=== PATIENT | male | born 1955 | race Caucasian/White ===

== ENCOUNTER 2023-09-01 21:36 | Inpatient (IN) | payer MEDICARE, BC, SELFPAY ==
[2023-09-01 21:51] VITALS: BP 161/95; PULSE 106; RESP 22; TEMP 37.7; O2SAT 95; BMI 34.3
[2023-09-01 22:06] LABS: Lactate* 1.4 mmol/L (0.5-1.9)
[2023-09-01 22:08] LABS: Hemoglobin* 16.3 gm/dL (13.5-17.5); Immature Granulocytes Abs Auto 0.02 K/uL (0.00-0.30); Immature Granulocytes Pct Auto 0.2 %; Lymphocytes Percent Auto 1.5 % (20-44); Mean Corpuscular HGB Conc 35 gm/dL (32-36); Mean Corpuscular Hemoglobin 30 pg (26-34); Mean Corpuscular Volume 85 fL (80-100); Monocytes Percent Auto 4.8 % (0.0-11.0); Neutrophils Percent Auto 93.5 % (42.0-72.0); Platelet Count* 82 K/uL (140-440); RDW Coefficient of Variation % 12.3 % (11.5-15.5); Red Blood Count 5.53 m/uL (4.30-5.90)
[2023-09-01 22:16] LABS: Slide Review Reflex No
[2023-09-01 22:20] LABS: Albumin* 3.8 g/dL (3.3-5.0); Chloride* 98 mmol/L (96-114)
[2023-09-01 22:21] LABS: Sodium* 133 mmol/L (135-149)
[2023-09-01 22:23] LABS: Anion Gap 12 mEq/L (7-15); Carbon Dioxide* 23 mmol/L (20-32); Creatinine* 1.3 mg/dL (0.5-1.5); Est. Creatinine Clearance* 63.17; Estimated Glomerular Filt Rate 61 ml/min
[2023-09-01 22:24] VITALS: BP 138/83; PULSE 105; RESP 16; O2SAT 95
[2023-09-01 22:24] LABS: Alanine Aminotransferase* 24 U/L (4-50); Alkaline Phosphatase* 162 U/L (40-150); Aspartate Amino Transferase* 28 U/L (12-35); Bilirubin Direct* 2.3 mg/dL (0.0-0.5); Bilirubin Total* 4.8 mg/dL (0.1-1.5); Blood Urea Nitrogen* 17 mg/dL (7-30); Calcium* 8.5 mg/dL (8.4-10.6); Glucose* 231 mg/dL (60-115); Lipase* 82 U/L (23-300); Total Protein* 6.9 g/dL (6.0-8.3)
[2023-09-01 22:26] LABS: Potassium* 2.8 mmol/L (3.6-5.1)
--- NOTE | 2023-09-01 22:35 | ED.GENADULT ---
HPI - General Adult General Chief complaint: Nausea/Vomiting Stated complaint: Weakness Time Seen by Provider: 09/01/23 22:00 History of Present Illness HPI narrative: CC: Fevers, Weakness, Nausea/Vomiting pt. with 2-3 days of symptoms. unable to keep medications down. weakness . 68-year-old man presenting to the emergency department with concern of vomiting for the last 3 days or so. Actually seems to have begun with some pain meds he gestures across the mid and upper abdomen. Has now been dry heaving. Has not been unable to keep his medications down. Quite thirsty. There is a diagnosis of Parkinson's they were concerned particular about his Sinemet dosing. He is increasingly weak needed help getting up today. Pain is now improved. No diarrhea. No constipation. Passed gas 20 minutes ago he thinks. No particular exposures. Per family EMS measured a temperature of 101?. He arrives here 99.9 Does have a history of atrial fibrillation. Anticoagulated with Coumadin. Last recalled INR was 3.8 history of hypertension, diabetes, dyslipidemia, sleep apnea. Facial skin cancer treated with radiation History of appendectomy Medications include metformin Lisinopril Glipizide Metoprolol Warfarin Tamsulosin Rosuvastatin Amlodipine Sinemet Efudex Tylenol p.m. Related Data Home Medications Medication Instructions Recorded Confirmed amlodipine 10 mg tablet 10 mg PO DAILY 09/02/23 09/02/23 carbidopa 25 mg-levodopa 100 mg 1 tab PO TID 09/02/23 09/02/23 tablet glipizide 2.5 mg tablet, extended 5 mg PO DAILY 09/02/23 09/02/23 release 24 hr lisinopril 40 mg tablet 40 mg PO DAILY 09/02/23 09/02/23 metoprolol tartrate 100 mg tablet 100 mg PO BID 09/02/23 09/02/23 rosuvastatin 20 mg tablet 40 mg PO QPM 09/02/23 09/02/23 tamsulosin 0.4 mg capsule 0.4 mg PO DAILY 09/02/23 09/02/23 warfarin 5 mg tablet PO 09/02/23 Allergies Allergy/AdvReac Type Severity Reaction Status Date / Time No Known Drug Allergies Allergy Verified 09/01/23 21:54 Review of Systems Status of ROS: Reports: 6 or more systems reviewed and unremarkable except as noted in History and below [facility] Medical History (Updated 09/02/23 @ 03:15 by Efra Castro MD) Atrial fibrillation ?I48.91 - Unspecified atrial fibrillation (ICD-10) Diabetes ?E11.9 - Type 2 diabetes mellitus without complications (ICD-10) Parkinsons ?G20.A1 - Parkinson's disease without dyskinesia, without mention of fluctuations (ICD-10) Social History What is your current living situation?: I presently have a place to live Problems where you live: no known problems Problems where you live details: n/a In the past 12 months, utilities in danger of being shut off: no In past 12 months, lack of transportation kept you from medical appts, meetings, work, or getting things needed for daily living: no In the past 12 mos, have been you worried that your food would run out before you had money to buy more?: never true In the past 12 mos, the food you bought just didn't last and you didn't have money to buy more?: never true Highest level of school completed/degree received: high school graduate How often do you have a drink containing alcohol: 4 or more times a week Alcohol type: hard liquor Alcohol type details: Tequila [employer] Luca Pt states he maybe drinks 14-15 Cocktails per week states he has a couple drinks per week How often do you have six or more drinks on one occasion: Weekly AUDIT-C Alcohol total score: 7 Non-prescribed substance use: denies use How often does anyone, including family, friends and others, physically hurt you: never How often does anyone, including family, friends and others, insult or talk down to you: never How often does anyone, including family, friends and others, threaten you with harm: never How often does anyone, including family, friends and others, scream or curse at you: never service: No Exam Narrative: Exam Narrative: Pleasant. NAD. Seems tired. Oropharynx is little sticky. Cranial nerves 2 through 12 appear to be intact. Mild scleral icterus. Lungs are clear. Heart is in a rapid rate. Appears to be in a regular rhythm with some ectopy. Abdomen is full soft and nontender. Did not hear bowel sounds. No masses appreciated. Is well-perfused peripherally. Lower extremities are without edema. Const: Vital Signs, click to edit/add: Vital Signs - 24 hr 09/01/23 21:51 09/01/23 22:24 09/01/23 22:41 Temperature 99.9 F H Pulse Rate 105 H 101 H Pulse Rate [Pulse Oximeter] Pulse Rate [Right Pulse Oximeter] 106 H Respiratory Rate 22 16 16 Blood Pressure 138/83 140/81 H Blood Pressure [Le ft Upper Arm] 161/95 H Blood Pressure [Ri ght Arm] Pulse Oximetry 95 95 95 Oxygen Delivery Me thod Room Air 09/01/23 23:01 09/01/23 23:22 09/01/23 23:42 Temperature Pulse Rate 97 100 104 H Pulse Rate [Pulse Oximeter] Pulse Rate [Right Pulse Oximeter] Respiratory Rate 16 18 16 Blood Pressure 161/101 H 162/99 H 145/87 H Blood Pressure [Le ft Upper Arm] Blood Pressure [Ri ght Arm] Pulse Oximetry 95 96 94 Oxygen Delivery Me thod 09/02/23 00:01 09/02/23 00:01 09/02/23 00:22 Temperature Pulse Rate 101 H 101 H 96 Pulse Rate [Pulse Oximeter] Pulse Rate [Right Pulse Oximeter] Respiratory Rate 16 16 16 Blood Pressure 144/114 H 144/114 H 146/92 H Blood Pressure [Le ft Upper Arm] Blood Pressure [Ri ght Arm] Pulse Oximetry 95 95 96 Oxygen Delivery Me thod 09/02/23 02:00 09/02/23 02:01 Temperature 97.7 F Pulse Rate Pulse Rate [Pulse Oximeter] 90 Pulse Rate [Right Pulse Oximeter] Respiratory Rate 24 24 Blood Pressure Blood Pressure [Le ft Upper Arm] Blood Pressure [Ri ght Arm] 131/88 Pulse Oximetry 95 95 Oxygen Delivery Me thod Room Air Room Air Documenting provider has reviewed patient's vital signs: yes Course Vital Signs Vital signs: Initial Vital Signs Temperature 99.9 F H 09/01/23 21:51 Temperature Source Temporal Artery Scan 09/01/23 21:51 Pulse Rate 106 H 09/01/23 21:51 Respiratory Rate 22 09/01/23 21:51 Blood Pressure 161/95 H 09/01/23 21:51 Blood Pressure Mean 117 H 09/01/23 21:51 Blood Pressure Position Sitting 09/01/23 21:51 Pulse Oximetry 95 09/01/23 21:51 Oxygen Delivery Method Room Air 09/01/23 21:51 Vital Signs Temperature 99.9 F H 09/01/23 21:51 Pulse Rate 106 H 09/01/23 21:51 Respiratory Rate 22 09/01/23 21:51 Blood Pressure 161/95 H 09/01/23 21:51 Pulse Oximetry 95 09/01/23 21:51 Oxygen Delivery Method Room Air 09/01/23 21:51 Temperature 98.5 F 09/02/23 07:00 Pulse Rate 98 09/02/23 07:00 Respiratory Rate 22 09/02/23 07:00 Blood Pressure 140/85 H 09/02/23 07:00 Pulse Oximetry 95 09/02/23 07:00 Oxygen Delivery Method Room Air 09/02/23 07:00 Medications Administered Medications: Generic Name Dose Route Start Last Admin Trade Name Freq PRN Reason Stop Dose Admin Lactated Ringer's 1,000 mls @ 100 mls/hr 09/02/23 03:00 09/02/23 05:38 Lactated Ringers 1000 Ml IV 100 mls/hr .Q10H AL Administration Piperacillin Sod/Tazobactam 100 mls @ 200 mls/hr 09/02/23 09:30 09/02/23 09:53 Sod 3.375 gm/ Sodium Chloride IVPB 200 mls/hr Q6H AL Administration Insulin Aspart 0 unit 09/02/23 08:00 09/02/23 09:02 Insulin Aspart 100 Unit/Ml SUBCUT Not Given TIDWM AL Protocol Sodium Chloride 5 ml 09/02/23 09:00 09/02/23 09:02 Sodium Chloride 0.9 % (Flush) 10 Ml Syringe IVF Not Given BID AL Sodium Chloride 5 ml 09/02/23 09:00 09/02/23 09:02 Sodium Chloride 0.9 % (Flush) 10 Ml Syringe IVF Not Given BID AL Discontinued Medications Generic Name Dose Route Start Last Admin Trade Name Freq PRN Reason Stop Dose Admin Lactated Ringer's 1,000 mls @ 1,000 mls/hr 09/01/23 23:06 09/02/23 05:19 Lactated Ringers 1000 Ml IV 09/02/23 00:05 Infused .Q1H ONE Infusion Potassium Chloride 10 meq in 100 mls @ 100 mls/hr 09/01/23:08 09/02/23 01:28 Potassium Chloride IVPB 09/02/23 00:07 Infused ONCE ONE Infusion Piperacillin Sod/Tazobactam 100 mls @ 200 mls/hr 09/02/23 02:07 09/02/23 05:19 Sod 4.5 gm/ Sodium Chloride IVPB 09/02/23 02:08 Infused ONCE ONE Infusion Potassium Chloride 10 meq in 100 mls @ 100 mls/hr 09/02/23 03:00 09/02/23 09:00 Potassium Chloride IVPB 09/02/23 08:29 100 mls/hr Q90M AL Administration Potassium Bicarbonate 25 meq 09/01/23 23:08 09/01/23 23:20 Potassium Bicarb 25 Meq Effervescent Tab PO 09/01/23 23:09 25 meq ONCE ONE Administration Potassium Chloride 40 meq 09/02/23 02:54 09/02/23 03:45 Potassium Chloride 10 Meq Capsule Er PO 09/02/23 02:55 40 meq ONCE ONE Administration Promethazine HCl 12.5 mg 09/01/23 23:06 09/01/23 23:30 Promethazine 25 Mg/Ml Inj IVP 09/01/23 23:07 12.5 mg ONCE ONE Administration Medical Decision Making MDM Narrative Medical decision making narrative: may just have a gastroenteritis. Appears to be dehydrated. Initiating IV hydration. Will look for other source of infection. Check COVID and influenza as well. Does not have abdominal pain at this time. Labs may indicate need for further imaging. Lactate was normal at 1.4. Normal lipase. Bilirubin was elevated at 4.84 total with direct of 2.3. This is consistent with noted scleral icterus. Transaminases are normal. White count is normal. CRP elevated 17.8. Potassium of 2.8 presumably from GI loss. Given 10 mEq IV bump and 25 meq as well oral once nausea controlled. Did receive IV hydration along with promethazine. With normal white count is status CT did request limited abdominal ultrasound. Discussed findings with film processing shift supervisor. Confirmed thickened gallbladder wall without inflammatory changes. Radiology over-read as below Gallbladder: No gallstones or sludge seen in the lumen. Mild gallbladder wall thickening is noted measuring 7 mm. No pericholecystic fluid is present. No sonographic Goel???s sign is present. Common bile duct: 7 mm. No intrahepatic biliary ductal dilatation seen. Pancreas: The visualized portions of the pancreatic head and body are normal in appearance. Right Kidney: 14 cm. There are 2 exophytic right renal cyst measuring up to 3.1 cm. No hydronephrosis or ureterectasis is seen. Vascular: Ectasia of the abdominal aorta is present measuring 3.2 cm. The visualized portal vein is patent with normal anterograde flow. IMPRESSION: 1. Mild gallbladder wall thickening is noted measuring 7 mm. This is nonspecific and can be seen with cholecystitis, hepatitis, cirrhosis, or congestive heart failure and clinical correlation is recommended. Discussed these findings with general surgeon. Anticipating admission for MRCP. Presumably would need ERCP however no beds are available elsewhere. Initiating antibiotics. Discussed with hospitalist for admission. Has been vitally well though mildly tachycardic in the setting of atrial fibrillation, chronic. INR pending Lab Data Lab results reviewed: Yes I reviewed the patient's lab results Labs: Lab Results 09/01/23 09/01/23 09/01/23 Range/Units 21:48 21:48 21:48 WBC 9.60 (4.50-11.00) K/uL RBC 5.53 (4.30-5.90) m/uL Hgb 16.3 (13.5-17.5) gm/dL Hct 47.0 (37.0-53.0) % MCV 85 (80-100) fL MCH 30 (26-34) pg MCHC 35 (32-36) gm/dL RDW Coeff of Yi 12.3 (11.5-15.5) % Plt Count 82 L (140-440) K/uL Neut % (Auto) 93.5 H (42.0-72.0) % Lymph % (Auto) 1.5 L (20-44) % Casey % (Auto) 4.8 (0.0-11.0) % Eos % (Auto) 0.0 (0.0-7.0) % Baso % (Auto) 0.0 (0.0-3.0) % Neut # (Auto) 9.00 H (1.7-7.0) K/uL Lymph # (Auto) 0.10 L (0.90-2.90) K/uL Casey # (Auto) 0.50 (0.00-0.90) K/UL Eos # (Auto) 0.00 (0.00-0.50) K/uL Baso # (Auto) 0.00 (0.00-0.30) K/uL Abs Immat Gran (auto) 0.02 (0.00-0.30) K/uL Imm/Tot Granulo (auto) 0.2 % INR 1.21 H (0.91-1.10) Sodium 133 L (135-149) mmol/L Potassium 2.8 L* (3.6-5.1) mmol/L Chloride 98 (96-114) mmol/L Carbon Dioxide 23 (20-32) mmol/L Anion Gap 12 (7-15) mEq/L BUN 17 (7-30) mg/dL Creatinine 1.3 (0.5-1.5) mg/dL Estimated Creat Clear 63.17 Estimated GFR 61 ml/min Glucose 231 H (60-115) mg/dL Lactate 1.4 (0.5-1.9) mmol/L Calcium 8.5 (8.4-10.6) mg/dL Magnesium 1.9 (1.5-2.6) mg/dL Total Bilirubin 4.8 H Cancelled (0.1-1.5) mg/dL Direct Bilirubin 2.3 H Cancelled (0.0-0.5) mg/dL AST 28 (12-35) U/L ALT (4-50) U/L Alkaline Phosphatase (40-150) U/L C-Reactive Protein (0.5-1.0) mg/dL Total Protein (6.0-8.3) g/dL Albumin (3.3-5.0) g/dL Lipase (23-300) U/L Lab Acknowledgement 09/01/23 09/01/23 09/01/23 Range/Units 21:48 21:48 21:48 WBC (4.50-11.00) K/uL RBC (4.30-5.90) m/uL Hgb (13.5-17.5) gm/dL Hct (37.0-53.0) % MCV (80-100) fL MCH (26-34) pg MCHC (32-36) gm/dL RDW Coeff of Yi (11.5-15.5) % Plt Count (140-440) K/uL Neut % (Auto) (42.0-72.0) % Lymph % (Auto) (20-44) % Casey % (Auto) (0.0-11.0) % Eos % (Auto) (0.0-7.0) % Baso % (Auto) (0.0-3.0) % Neut # (Auto) (1.7-7.0) K/uL Lymph # (Auto) (0.90-2.90) K/uL Casey # (Auto) (0.00-0.90) K/UL Eos # (Auto) (0.00-0.50) K/uL Baso # (Auto) (0.00-0.30) K/uL Abs Immat Gran (auto) (0.00-0.30) K/uL Imm/Tot Granulo (auto) % INR (0.91-1.10) Sodium (135-149) mmol/L Potassium (3.6-5.1) mmol/L Chloride (96-114) mmol/L Carbon Dioxide (20-32) mmol/L Anion Gap (7-15) mEq/L BUN (7-30) mg/dL Creatinine (0.5-1.5) mg/dL Estimated Creat Clear Estimated GFR ml/min Glucose (60-115) mg/dL Lactate (0.5-1.9) mmol/L Calcium (8.4-10.6) mg/dL Magnesium (1.5-2.6) mg/dL Total Bilirubin (0.1-1.5) mg/dL Direct Bilirubin (0.0-0.5) mg/dL AST Cancelled (12-35) U/L ALT 24 Cancelled (4-50) U/L Alkaline Phosphatase 162 H Cancelled (40-150) U/L C-Reactive Protein 17.8 H (0.5-1.0) mg/dL Total Protein 6.9 (6.0-8.3) g/dL Albumin (3.3-5.0) g/dL Lipase (23-300) U/L Lab Acknowledgement 09/01/23 09/01/23 09/01/23 Range/Units 21:48 21:48 21:48 WBC (4.50-11.00) K/uL RBC (4.30-5.90) m/uL Hgb (13.5-17.5) gm/dL Hct (37.0-53.0) % MCV (80-100) fL MCH (26-34) pg MCHC (32-36) gm/dL RDW Coeff of Yi (11.5-15.5) % Plt Count (140-440) K/uL Neut % (Auto) (42.0-72.0) % Lymph % (Auto) (20-44) % Casey % (Auto) (0.0-11.0) % Eos % (Auto) (0.0-7.0) % Baso % (Auto) (0.0-3.0) % Neut # (Auto) (1.7-7.0) K/uL Lymph # (Auto) (0.90-2.90) K/uL Casey # (Auto) (0.00-0.90) K/UL Eos # (Auto) (0.00-0.50) K/uL Baso # (Auto) (0.00-0.30) K/uL Abs Immat Gran (auto) (0.00-0.30) K/uL Imm/Tot Granulo (auto) % INR (0.91-1.10) Sodium (135-149) mmol/L Potassium (3.6-5.1) mmol/L Chloride (96-114) mmol/L Carbon Dioxide (20-32) mmol/L Anion Gap (7-15) mEq/L BUN (7-30) mg/dL Creatinine (0.5-1.5) mg/dL Estimated Creat Clear Estimated GFR ml/min Glucose (60-115) mg/dL Lactate (0.5-1.9) mmol/L Calcium (8.4-10.6) mg/dL Magnesium (1.5-2.6) mg/dL Total Bilirubin (0.1-1.5) mg/dL Direct Bilirubin (0.0-0.5) mg/dL AST (12-35) U/L ALT (4-50) U/L Alkaline Phosphatase (40-150) U/L C-Reactive Protein (0.5-1.0) mg/dL Total Protein Cancelled (6.0-8.3) g/dL Albumin 3.8 Cancelled (3.3-5.0) g/dL Lipase 82 Cancelled (23-300) U/L Lab Acknowledgement 09/01/23 09/02/23 Range/Units 23:05 01:56 WBC (4.50-11.00) K/uL RBC (4.30-5.90) m/uL Hgb (13.5-17.5) gm/dL Hct (37.0-53.0) % MCV (80-100) fL MCH (26-34) pg MCHC (32-36) gm/dL RDW Coeff of Yi (11.5-15.5) % Plt Count (140-440) K/uL Neut % (Auto) (42.0-72.0) % Lymph % (Auto) (20-44) % Casey % (Auto) (0.0-11.0) % Eos % (Auto) (0.0-7.0) % Baso % (Auto) (0.0-3.0) % Neut # (Auto) (1.7-7.0) K/uL Lymph # (Auto) (0.90-2.90) K/uL Casey # (Auto) (0.00-0.90) K/UL Eos # (Auto) (0.00-0.50) K/uL Baso # (Auto) (0.00-0.30) K/uL Abs Immat Gran (auto) (0.00-0.30) K/uL Imm/Tot Granulo (auto) % INR (0.91-1.10) Sodium (135-149) mmol/L Potassium (3.6-5.1) mmol/L Chloride (96-114) mmol/L Carbon Dioxide (20-32) mmol/L Anion Gap (7-15) mEq/L BUN (7-30) mg/dL Creatinine (0.5-1.5) mg/dL Estimated Creat Clear Estimated GFR ml/min Glucose (60-115) mg/dL Lactate (0.5-1.9) mmol/L Calcium (8.4-10.6) mg/dL Magnesium (1.5-2.6) mg/dL Total Bilirubin (0.1-1.5) mg/dL Direct Bilirubin (0.0-0.5) mg/dL AST (12-35) U/L ALT (4-50) U/L Alkaline Phosphatase (40-150) U/L C-Reactive Protein (0.5-1.0) mg/dL Total Protein (6.0-8.3) g/dL Albumin (3.3-5.0) g/dL Lipase (23-300) U/L Lab Acknowledgement Test Added Test Added ECG Data Attestation: I personally reviewed and interpreted this ECG as follows: (Atrial fibrillation with RVR at 105) Discharge Plan Discharge Clinical Impression: Common bile duct calculi, Elevated bilirubin, Vomiting, Dehydration, Hypokalemia Patient Disposition: Admitted As Observation Condition: Stable
[2023-09-01 22:41] VITALS: BP 140/81; PULSE 101; RESP 16; O2SAT 95
[2023-09-01 23:01] VITALS: BP 161/101; PULSE 97; RESP 16; O2SAT 95
--- NOTE | 2023-09-01 23:06 | CRLHL7_ITS ---
For Patients: As a result of the Century Cures Act, medical imaging exams and procedure reports are released immediately into your electronic medical record. You may view this report before your referring provider. If you have questions, please contact your health care provider. INDICATION: Elevated bili, vomiting TECHNIQUE: Ultrasound abdomen limited. Sonographic images of the right upper quadrant were obtained using saleh-scale and color Doppler images. COMPARISON: None FINDINGS: Liver: Moderate diffuse fatty infiltration of the liver is noted. Gallbladder: No gallstones or sludge seen in the lumen. Mild gallbladder wall thickening is noted measuring 7 mm. No pericholecystic fluid is present. No sonographic Goel???s sign is present. Common bile duct: 7 mm. No intrahepatic biliary ductal dilatation seen. Pancreas: The visualized portions of the pancreatic head and body are normal in appearance. Right Kidney: 14 cm. There are 2 exophytic right renal cyst measuring up to 3.1 cm. No hydronephrosis or ureterectasis is seen. Vascular: Ectasia of the abdominal aorta is present measuring 3.2 cm. The visualized portal vein is patent with normal anterograde flow. IMPRESSION: 1. Mild gallbladder wall thickening is noted measuring 7 mm. This is nonspecific and can be seen with cholecystitis, hepatitis, cirrhosis, or congestive heart failure and clinical correlation is recommended. Dictated by Jeremiah Dale MD @ 09/02/2023 12:58:44 AM Dictated by: Jeremiah Dale MD @ 09/02/2023 01:01:23 (Electronically Signed)
[2023-09-01] MEDS: POTASSIUM BICARB 25 MEQ EFFERVESCENT TAB PO (23:20)
[2023-09-01] MEDS: LACTATED RINGERS 1000 ML 1,000 ML IV (23:20)
[2023-09-01 23:22] VITALS: BP 162/99; PULSE 100; RESP 18; O2SAT 96
[2023-09-01] MEDS: PROMETHAZINE 25 MG/ML INJ 12.5 MG IVP (23:30)
[2023-09-01] MEDS: POTASSIUM CHLORIDE 10 MEQ/100 ML PIGGYBACK 100 MEQ IVPB (23:35)
[2023-09-01 23:38] LABS: C Reactive Protein* 17.8 mg/dL (0.5-1.0)
[2023-09-01 23:42] VITALS: BP 145/87; PULSE 104; RESP 16; O2SAT 94
[2023-09-02] VITALS (9 sets, daily range): BP systolic 131–166; BP diastolic 85–114; PULSE 22–104; RESP 16–24; TEMP 36.5–36.9; O2SAT 95–96; BMI 35.5
[2023-09-02 02:06] LABS: INR 1.21 (0.91-1.10); Prothrombin Time 16.1 Seconds
--- NOTE | 2023-09-02 02:07 | PC.NURSE ---
report given to Jadyn Yuan/[facility]AST[facility], patient brought to room 258 accompanied by with all belongings
--- NOTE | 2023-09-02 03:02 | CRLHL7_ITS ---
For Patients: As a result of the Century Cures Act, medical imaging exams and procedure reports are released immediately into your electronic medical record. You may view this report before your referring provider. If you have questions, please contact your health care provider. INDICATION: choledocholithasis TECHNIQUE: An MRCP, including 2D, 3D and maximum intensity projection imaging, was performed. COMPARISON: None. FINDINGS: The common bile duct is smoothly marginated and mildly dilated measuring up to 9 mm in diameter. No definite filling defect is identified, however there is abrupt narrowing at the ampulla with mild dilation upstream from this region. The intrahepatic ducts are normal in caliber, aside from possible mild dilation in the left hepatic lobe. They appear to branch and taper in a grossly normal fashion. The gallbladder is unremarkable without evidence of gallstones. No gallbladder wall thickening or pericholecystic fluid is identified.. The pancreatic duct is normal in caliber. The liver is normal in size, shape and signal. The spleen, pancreas, adrenal glands scratch are within normal limits. Multiple bilateral renal cysts are noted. No hydronephrosis or hydroureter identified. Small hiatal hernia. No bowel abnormality, lymphadenopathy or free fluid is demonstrated. IMPRESSION: Mildly dilated common bile duct measuring up to 9 millimeters. There is abrupt narrowing near the ampulla with mild dilation just upstream from this region suspicious for ampullary lesion such as stone or soft tissue lesion. Consider further evaluation with ERCP. No gallstones identified. No evidence for cholecystitis. Dictated by Carolyn Luna MD @ 09/02/2023 6:40:00 PM (Electronically Signed)
--- NOTE | 2023-09-02 03:08 | W.PM.THH&P_ITS ---
Telehealth- H&P: HPI History of Present Illness Date Seen: 09/02/23 Chief complaint: Weakness Narrative: Miguel Ángel Trujillo is seen as an Interactive Telehealth visit. Miguel Ángel Trujillo is a 68 year old male with a past medical history notable for atrial fibrillation on warfarin, Parkinson's disease, type 2 diabetes not on long-term insulin who presented for evaluation of right upper quadrant pain, nausea, vomiting and chills. The patient had severe right upper quadrant pain 4 days prior to admission, the pain lasted 10 to 12 hours and was associated associated with nausea and vomiting lasting for about 2 days. after the patient stopped vomiting he was continued to have occasional dry heaves. He also reports intermittent fevers and chills. He has not had any significant oral intake since the onset of the pain. He has not had any chest pain. He has not had any shortness of breath. He has been very weak and had some urinary incontinence without any lower back pain or numbness. Of note the patient's did have abdominal pain and vomiting several days prior to the patient. He denies any history of gallstones. He did not noticed any jaundice. In the ER he was noted to have jaundice. Labs showed an elevated bilirubin of 4.8. His common bile duct was 0.7 cm on ultrasound, he did have some gallbladder wall thickening. The ER provider discussed the case with general surgery who recommended MRCP and IV antibiotics. The patient was treated with IV Zosyn. Due to patient's symptoms he has not been taking his home medications and missed about 2 doses of the warfarin prior to admission. [facility] Medical History (Updated 09/02/23 @ 03:15 by Efra Castro MD) Atrial fibrillation ?I48.91 - Unspecified atrial fibrillation (ICD-10) Diabetes ?E11.9 - Type 2 diabetes mellitus without complications (ICD-10) Parkinsons ?G20.A1 - Parkinson's disease without dyskinesia, without mention of fluctuations (ICD-10) Meds Home Medications and Allergies Allergies Allergy/AdvReac Type Severity Reaction Status Date / Time No Known Drug Allergies Allergy Verified 09/01/23 21:54 Exam Narrative Exam Narrative: Physical Exam GENERAL: ?vital signs reviewed, well developed and nourished, in no distress HEENT: pupils are equal round, mildly icteric, extraocular movements are grossly within normal limits and oral mucosa is moist. NECK: Supple without lymphadenopathy or thyromegaly according to nursing staff examination observation HEART: Regular rate and rhythm without any rubs, murmurs, or gallops. LUNGS: Clear to auscultation bilaterally with good air movement throughout ABDOMEN: Observation from nurse assisted exam, abdomen appears soft, nontender, and nondistended with Positive bowel sounds noted. EXTREMITIES: Strength and sensation is observed to be grossly within normal limits in the upper and lower extremities.? No focal strength deficit is observed. No signifcant tremor SKIN:? Observed warm and dry with color normal Const Vital Signs, click to edit/add: Vital Signs - 24 hr 09/01/23 21:51 09/01/23 22:24 09/01/23 22:41 Temperature 99.9 F H Pulse Rate 105 H 101 H Pulse Rate [Right Pulse Oximeter] 106 H Respiratory Rate 22 16 16 Blood Pressure 138/83 140/81 H Blood Pressure [Left Upper Arm] 161/95 H Pulse Oximetry 95 95 95 Oxygen Delivery Method Room Air 09/01/23 23:01 09/01/23 23:22 09/01/23 23:42 Temperature Pulse Rate 97 100 104 H Pulse Rate [Right Pulse Oximeter] Respiratory Rate 16 18 16 Blood Pressure 161/101 H 162/99 H 145/87 H Blood Pressure [Left Upper Arm] Pulse Oximetry 95 96 94 Oxygen Delivery Method 09/02/23 00:01 09/02/23 00:01 09/02/23 00:22 Temperature Pulse Rate 101 H 101 H 96 Pulse Rate [Right Pulse Oximeter] Respiratory Rate 16 16 16 Blood Pressure 144/114 H 144/114 H 146/92 H Blood Pressure [Left Upper Arm] Pulse Oximetry 95 95 96 Oxygen Delivery Method Hospitalist - H&P: Result Labs Labs: Short CBC 09/01/23 Range/Units 21:48 WBC 9.60 (4.50-11.00) K/uL Hgb 16.3 (13.5-17.5) gm/dL Hct 47.0 (37.0-53.0) % Plt Count 82 L (140-440) K/uL BMP 09/01/23 21:48 Sodium 133 L Potassium 2.8 L* Chloride 98 Carbon Dioxide 23 BUN 17 Creatinine 1.3 Glucose 231 H Calcium 8.5 Liver Function 09/01/23 09/01/23 09/01/23 Range/Units 21:48 21:48 21:48 Total Bilirubin 4.8 H Cancelled (0.1-1.5) mg/dL Direct Bilirubin 2.3 H Cancelled (0.0-0.5) mg/dL AST 28 (12-35) U/L ALT (4-50) U/L Alkaline Phosphatase (40-150) U/L Albumin (3.3-5.0) g/dL 09/01/23 09/01/23 09/01/23 Range/Units 21:48 21:48 21:48 Total Bilirubin (0.1-1.5) mg/dL Direct Bilirubin (0.0-0.5) mg/dL AST Cancelled (12-35) U/L ALT 24 Cancelled (4-50) U/L Alkaline Phosphatase 162 H Cancelled (40-150) U/L Albumin 3.8 (3.3-5.0) g/dL 09/01/23 Range/Units 21:48 Total Bilirubin (0.1-1.5) mg/dL Direct Bilirubin (0.0-0.5) mg/dL AST (12-35) U/L ALT (4-50) U/L Alkaline Phosphatase (40-150) U/L Albumin Cancelled (3.3-5.0) g/dL Assessment and Plan Assessment and plan (1) Elevated bilirubin: Status: Acute (2) Vomiting: Status: Acute (3) Dehydration: Status: Acute (4) Hypokalemia: Status: Acute (5) Parkinsons: Status: Acute (6) Diabetes: Status: Acute (7) Atrial fibrillation: Status: Acute Plan Right upper quadrant pain Elevated bilirubin Vomiting Concern for choledocholithiasis versus passed stone due to elevated bilirubin Possible acute cholecystitis due to gallbladder wall thickening ER discussed case with general surgery who recommended MRCP Patient will be n.p.o. Zosyn every 6 hours Hypokalemia due to poor intake Severe hypokalemia with a potassium of 2.8 Monitor on telemetry due to mild QT prolongation Check magnesium Will give 40 mill equivalents of oral potassium chloride and 10 mEq x 3 IV potassium chloride with recheck potassium Parkinson disease Resume home medications Type 2 diabetes not on long-term insulin Hold oral hypoglycemic agents Sliding scale insulin Atrial fibrillation Borderline RVR, likely reactive On Coumadin for stroke risk reduction, missed 2 doses prior to admission Continue to hold Coumadin as patient may need ERCP versus cholecystectomy EKG personally reviewed: No acute ischemic changes. A-fib with RVR and prolonged QT Full code confirmed on admission Telehealth: Statement Statement Telehealth Visit: Today's History and Physical is provided via interactive telehealth by Efra Castro MD.? Patient is located at [facility].? Provider is located at [facility].? Nursing staff assisted with the patient's exam. The visit being done today meets criteria for a telehealth visit and the patien t or patient?s parent/guardian is aware the visit is a telehealth visit. Camera Start Time: 02:39 Camera End Time: 02:51
[2023-09-02 03:33] LABS: Magnesium* 1.9 mg/dL (1.5-2.6)
[2023-09-02] MEDS: PIPERACILLIN/TAZOBACTAM 4.5 GM in 0.9 % SODIUM CHLORIDE Mini-bag 100 ML IVPB (03:37)
[2023-09-02] MEDS: POTASSIUM CHLORIDE 10 MEQ CAPSULE ER 40 MEQ PO (03:45)
[2023-09-02] MEDS: LACTATED RINGERS 1000 ML 1,000 ML 100 ML IV ×2 (03:54→05:38)
[2023-09-02] MEDS: POTASSIUM CHLORIDE 10 MEQ/100 ML PIGGYBACK 100 MEQ IVPB ×6 (03:56→13:10)
[2023-09-02 05:19] LABS: Appearance Urine Clear (Clear); Bilirubin Urine 1+ (Negative); Blood Urine 2+ (Negative); Color Urine Yellow (Yellow); Glucose Urine Negative (Negative); Ketones Urine Negative (Negative); Leukocyte Esterase Urine Negative (Negative); Nitrite Urine Negative (Negative); Protein Urine 2+ (Negative)
[2023-09-02 05:25] LABS: RBC Urine 0-2 (0-2); WBC Urine 0-2 (0-5)
[2023-09-02 05:26] LABS: Squamous Epithelial Cell Urine Few (None-Few)
--- NOTE | 2023-09-02 06:50 | PC.NURSE ---
pt to floor at 0201 accompanied by . Pt pleasant and cooperative. Pt in bed this shift, states he is too weak to get up. Pt was able to ambulate indep without assistive devices prior to current illness. New onset urinary incontinence that started Thursday 08/30 when his symptoms began. No nausea since admin to the floor, tolerated oral Potassium capsules. ? Pt states he takes 4 Carbidopa Levodopa in the morning and 3 in the afternoon, prescribed dose is 1 tablet 3x per day per epic chart. brought medications with her if needed, will assess with Hospitalist if they are needed, if not ? will take prescription medications home with her. ?
[2023-09-02 08:18] LABS: Basophils Absolute Auto 0.01 K/uL (0.00-0.30); Basophils Percent Auto 0.1 % (0.0-3.0); Eosinophils Absolute Auto 0.02 K/uL (0.00-0.50); Eosinophils Percent Auto 0.3 % (0.0-7.0); Hematocrit 46.4 % (37.0-53.0); Hemoglobin* 15.7 gm/dL (13.5-17.5); Immature Granulocytes Abs Auto 0.02 K/uL (0.00-0.30); Immature Granulocytes Pct Auto 0.3 %; Lymphocytes Percent Auto 4.6 % (20-44); Mean Corpuscular HGB Conc 34 gm/dL (32-36); Mean Corpuscular Hemoglobin 29 pg (26-34); Mean Corpuscular Volume 87 fL (80-100); Monocytes Percent Auto 6.6 % (0.0-11.0); Neutrophils Percent Auto 88.1 % (42.0-72.0); Platelet Count* 72 K/uL (140-440); RDW Coefficient of Variation % 12.5 % (11.5-15.5); Red Blood Count 5.34 m/uL (4.30-5.90); White Blood Count* 7.54 K/uL (4.50-11.00)
[2023-09-02 08:27] LABS: Slide Review Reflex No
[2023-09-02 08:37] LABS: Albumin* 3.6 g/dL (3.3-5.0); Chloride* 100 mmol/L (96-114); Potassium* 3.3 mmol/L (3.6-5.1); Sodium* 136 mmol/L (135-149)
[2023-09-02 08:39] LABS: Bilirubin Total* 4.1 mg/dL (0.1-1.5); Creatinine* 1.4 mg/dL (0.5-1.5); Est. Creatinine Clearance* 58.66; Estimated Glomerular Filt Rate 55 ml/min
[2023-09-02 08:40] LABS: Alanine Aminotransferase* 17 U/L (4-50); Alkaline Phosphatase* 151 U/L (40-150); Anion Gap 9 mEq/L (7-15); Aspartate Amino Transferase* 23 U/L (12-35); Blood Urea Nitrogen* 17 mg/dL (7-30); Calcium* 8.4 mg/dL (8.4-10.6); Carbon Dioxide* 27 mmol/L (20-32); Glucose* 127 mg/dL (60-115); Total Protein* 6.7 g/dL (6.0-8.3)
[2023-09-02 08:41] LABS: Magnesium* 1.9 mg/dL (1.5-2.6)
[2023-09-02] MEDS: PIPERACILLIN/TAZOBACTAM 3.375 GM in 0.9 % SODIUM CHLORIDE Mini-bag 100 ML IVPB ×2 (09:53→15:56)
--- NOTE | 2023-09-02 10:56 | P.IMPN_ITS ---
Progress Note: A&P Assessment and plan (1) Elevated bilirubin: Status: Acute Assessment and Plan: Bilirubin on admission elevated with minimally elevated transaminases. Now improving. Patient presented with jaundice. Suspect secondary to choledocholith iasis which may have spontaneously resolved. No ongoing abdominal pain. -Continue to monitor bilirubin -Follow up on MRCP, surgery consult appreciated -Further workup depends on above results (2) Common bile duct calculi: Status: Acute Assessment and Plan: Noted on US with mildly thickened gallbladder wall. Unclear if there is a true cholecystitis as patient's pain has resolved and labs are now improving. -Continue IV antibiotics until MRCP resulted and a plan is developed for next steps. (3) Dehydration: Status: Acute Assessment and Plan: Resolving with IVF. -Continue fluids while NPO (4) Hypokalemia: Status: Acute Assessment and Plan: Critically low at 2.8 on presentation and patient noted to be quite weak/fatigued. Now improving with replacement. -Give another 10mEq Potassium via IVPB -Continue to monitor (5) Parkinsons: Status: Acute Assessment and Plan: Continue Sinemet (6) Diabetes: Status: Acute Assessment and Plan: Typically on low dose glipizide and metformin. Glucose currently well controlled -Continue to hold antihyperglycemics while NPO, will need to resume with diet -If am glucose rises, consider SSI (7) Atrial fibrillation: Status: Acute Assessment and Plan: Rate is well controlled. -Continue metoprolol -Hold anticoagulation until decision regarding surgery needs. (8) Vomiting: Status: Acute Assessment and Plan: Resolved Subjective Date Seen: 09/02/23 Interval history: Patient is seen and examined. Denies any abdominal pain, nausea, vomiting and diarrhea. confides that she is concerned about a sinister diagnosis due to his recent profound fatigue and jaundice. We discussed that it is possible he passed a gallstone and with the nausea and vomiting as well as not taking his medications at home, a picture like this could certainly develop, but that we will hopefully know more once the MRCP is obtained. Physical Exam: General: Resting in recliner, no distress HEENT: NCAT Resp: Breathing is comfortable and unlabored, CTAB CV: IRR, rate reasonably well controlled Neuro: Baseline tremor noted (patient has not had sinemet today, yet) Skin: Ongoing jaundice affecting limbs, trunk and face Exam Const: Vital Signs, click to edit/add: Vital Signs - 24 hr 09/01/23 21:51 09/01/23 22:24 09/01/23 22:41 Temperature 99.9 F H Pulse Rate 105 H 101 H Pulse Rate [Pulse Oximeter] Pulse Rate [Right Pulse Oximeter] 106 H Respiratory Rate 22 16 16 Blood Pressure 138/83 140/81 H Blood Pressure [Le ft Upper Arm] 161/95 H Blood Pressure [Ri ght Arm] Pulse Oximetry 95 95 95 Oxygen Delivery Me thod Room Air 09/01/23 23:01 09/01/23 23:22 09/01/23 23:42 Temperature Pulse Rate 97 100 104 H Pulse Rate [Pulse Oximeter] Pulse Rate [Right Pulse Oximeter] Respiratory Rate 16 18 16 Blood Pressure 161/101 H 162/99 H 145/87 H Blood Pressure [Le ft Upper Arm] Blood Pressure [Ri ght Arm] Pulse Oximetry 95 96 94 Oxygen Delivery Me thod 09/02/23 00:01 09/02/23 00:01 09/02/23 00:22 Temperature Pulse Rate 101 H 101 H 96 Pulse Rate [Pulse Oximeter] Pulse Rate [Right Pulse Oximeter] Respiratory Rate 16 16 16 Blood Pressure 144/114 H 144/114 H 146/92 H Blood Pressure [Le ft Upper Arm] Blood Pressure [Ri ght Arm] Pulse Oximetry 95 95 96 Oxygen Delivery Me thod 09/02/23 02:00 09/02/23 02:01 09/02/23 04:43 Temperature 97.7 F Pulse Rate 96 Pulse Rate [Pulse Oximeter] 90 Pulse Rate [Right Pulse Oximeter] Respiratory Rate 24 24 Blood Pressure Blood Pressure [Le ft Upper Arm] Blood Pressure [Ri ght Arm] 131/88 Pulse Oximetry 95 95 Oxygen Delivery Me thod Room Air Room Air 09/02/23 07:00 09/02/23 07:00 09/02/23 07:00 Temperature 98.5 F Pulse Rate 92 Pulse Rate [Pulse Oximeter] 98 98 Pulse Rate [Right Pulse Oximeter] Respiratory Rate 22 22 Blood Pressure Blood Pressure [Le ft Upper Arm] Blood Pressure [Ri ght Arm] 140/85 H Pulse Oximetry 95 Oxygen Delivery Me thod Room Air Labs Labs: Laboratory Results - last 24 hr 11/15/23 11/15/23 11/15/23 21:48 21:48 21:48 WBC 9.60 RBC 5.53 Hgb 16.3 Hct 47.0 MCV 85 MCH 30 MCHC 35 RDW Coeff of Yi 12.3 Plt Count 82 L Neut % (Auto) 93.5 H Lymph % (Auto) 1.5 L Irwin % (Auto) 4.8 Eos % (Auto) 0.0 Baso % (Auto) 0.0 Neut # (Auto) 9.00 H Lymph # (Auto) 0.10 L Irwin # (Auto) 0.50 Eos # (Auto) 0.00 Baso # (Auto) 0.00 Abs Immat Gran (auto) 0.02 Imm/Tot Granulo (auto) 0.2 INR 1.21 H Sodium 133 L Potassium 2.8 L* Chloride 98 Carbon Dioxide 23 Anion Gap 12 BUN 17 Creatinine 1.3 Estimated Creat Clear 63.17 Estimated GFR 61 Glucose 231 H Lactate 1.4 Calcium 8.5 Magnesium 1.9 Total Bilirubin 4.8 H Cancelled Direct Bilirubin 2.3 H Cancelled AST 28 ALT Alkaline Phosphatase C-Reactive Protein Total Protein Albumin Lipase Urine Color Urine Appearance Urine pH Ur Specific Lawrence Urine Protein Urine Glucose (UA) Urine Ketones Urine Blood Urine Nitrite Urine Bilirubin Urine Urobilinogen Ur Leukocyte Esterase Urine RBC Urine WBC Ur Squamous Epith Cells Urine Bacteria Lab Acknowledgement 09/01/23 09/01/23 09/01/23 21:48 21:48 21:48 WBC RBC Hgb Hct MCV MCH MCHC RDW Coeff of Yi Plt Count Neut % (Auto) Lymph % (Auto) Irwin % (Auto) Eos % (Auto) Baso % (Auto) Neut # (Auto) Lymph # (Auto) Irwin # (Auto) Eos # (Auto) Baso # (Auto) Abs Immat Gran (auto) Imm/Tot Granulo (auto) INR Sodium Potassium Chloride Carbon Dioxide Anion Gap BUN Creatinine Estimated Creat Clear Estimated GFR Glucose Lactate Calcium Magnesium Total Bilirubin Direct Bilirubin AST Cancelled ALT 24 Cancelled Alkaline Phosphatase 162 H Cancelled C-Reactive Protein 17.8 H Total Protein 6.9 Albumin Lipase Urine Color Urine Appearance Urine pH Ur Specific Lawrence Urine Protein Urine Glucose (UA) Urine Ketones Urine Blood Urine Nitrite Urine Bilirubin Urine Urobilinogen Ur Leukocyte Esterase Urine RBC Urine WBC Ur Squamous Epith Cells Urine Bacteria Lab Acknowledgement 09/01/23 09/01/23 09/01/23 21:48 21:48 21:48 WBC RBC Hgb Hct MCV MCH MCHC RDW Coeff of Yi Plt Count Neut % (Auto) Lymph % (Auto) Irwin % (Auto) Eos % (Auto) Baso % (Auto) Neut # (Auto) Lymph # (Auto) Irwin # (Auto) Eos # (Auto) Baso # (Auto) Abs Immat Gran (auto) Imm/Tot Granulo (auto) INR Sodium Potassium Chloride Carbon Dioxide Anion Gap BUN Creatinine Estimated Creat Clear Estimated GFR Glucose Lactate Calcium Magnesium Total Bilirubin Direct Bilirubin AST ALT Alkaline Phosphatase C-Reactive Protein Total Protein Cancelled Albumin 3.8 Cancelled Lipase 82 Cancelled Urine Color Urine Appearance Urine pH Ur Specific Lawrence Urine Protein Urine Glucose (UA) Urine Ketones Urine Blood Urine Nitrite Urine Bilirubin Urine Urobilinogen Ur Leukocyte Esterase Urine RBC Urine WBC Ur Squamous Epith Cells Urine Bacteria Lab Acknowledgement 09/01/23 09/02/23 09/02/23 23:05 01:56 03:05 WBC RBC Hgb Hct MCV MCH MCHC RDW Coeff of Yi Plt Count Neut % (Auto) Lymph % (Auto) Irwin % (Auto) Eos % (Auto) Baso % (Auto) Neut # (Auto) Lymph # (Auto) Irwin # (Auto) Eos # (Auto) Baso # (Auto) Abs Immat Gran (auto) Imm/Tot Granulo (auto) INR Sodium Potassium Chloride Carbon Dioxide Anion Gap BUN Creatinine Estimated Creat Clear Estimated GFR Glucose Lactate Calcium Magnesium Total Bilirubin Direct Bilirubin AST ALT Alkaline Phosphatase C-Reactive Protein Total Protein Albumin Lipase Urine Color Urine Appearance Urine pH Ur Specific Lawrence Urine Protein Urine Glucose (UA) Urine Ketones Urine Blood Urine Nitrite Urine Bilirubin Urine Urobilinogen Ur Leukocyte Esterase Urine RBC Urine WBC Ur Squamous Epith Cells Urine Bacteria Lab Acknowledgement Test Added Test Added Test Added 09/02/23 09/02/23 09/02/23 05:00 08:06 08:10 WBC 7.54 RBC 5.34 Hgb 15.7 Hct 46.4 MCV 87 MCH 29 MCHC 34 RDW Coeff of Yi 12.5 Plt Count 72 L Neut % (Auto) 88.1 H Lymph % (Auto) 4.6 L Irwin % (Auto) 6.6 Eos % (Auto) 0.3 Baso % (Auto) 0.1 Neut # (Auto) 6.60 Lymph # (Auto) 0.30 L Irwin # (Auto) 0.50 Eos # (Auto) 0.02 Baso # (Auto) 0.01 Abs Immat Gran (auto) 0.02 Imm/Tot Granulo (auto) 0.3 INR 1.20 H Sodium 136 Potassium 3.3 L Chloride 100 Carbon Dioxide 27 Anion Gap 9 BUN 17 Creatinine 1.4 Estimated Creat Clear 58.66 Estimated GFR 55 Glucose 127 H Lactate Calcium 8.4 Magnesium 1.9 Total Bilirubin 4.1 H Direct Bilirubin AST 23 ALT 17 Alkaline Phosphatase 151 H C-Reactive Protein Total Protein 6.7 Albumin 3.6 Lipase Urine Color Yellow Urine Appearance Clear Urine pH 7.0 Ur Specific Lawrence 1.010 Urine Protein 2+ A Urine Glucose (UA) Negative Urine Ketones Negative Urine Blood 2+ A Urine Nitrite Negative Urine Bilirubin 1+ A Urine Urobilinogen 1.0 Ur Leukocyte Esterase Negative Urine RBC 0-2 Urine WBC 0-2 Ur Squamous Epith Cells Few Urine Bacteria None Lab Acknowledgement Test Added
--- NOTE | 2023-09-02 10:59 | P.GSCN_ITS ---
History of Present Illness Consult details Date Seen: 09/02/23 Consult date: 09/02/23 Narrative: The patient is a 68-year-old male who states that he has been feeling unwell for the past several days. He states he was eating on Wednesday at lunch at work and began vomiting. He was feeling unwell and so his came to pick him up from work. He then had abdominal pain for about 6-8 hours which improved with vomiting. Pain subsided and then he developed urinary incontinence and difficulty walking. He denies ongoing abdominal pain. His states that he has been sleeping more in the past few days. Yesterday he had a fever and was clammy. His noted that he was pale and clammy and appeared yellow. He had difficulty sitting and therefore she brought him into the emergency department. There he was found to have hypokalemia, hyperbilirubinemia, a markedly elevated CRP. He had an ultrasound of his gallbladder which showed gallbladder wall thickening, no gallstones and biliary dilatation. He was admitted to the hospital on antibiotics. [facility] Medical History (Updated 09/02/23 @ 16:51 by Karly Alford MD) Atrial fibrillation ?I48.91 - Unspecified atrial fibrillation (ICD-10) Diabetes ?E11.9 - Type 2 diabetes mellitus without complications (ICD-10) Parkinsons ?G20.A1 - Parkinson's disease without dyskinesia, without mention of f luctuations (ICD-10) Surgical History (Updated 09/02/23 @ 16:44 by Karly Alford MD) S/P appendectomy ?Z90.49 - Acquired absence of other specified parts of digestive tract (ICD- 10) Social History (Updated 09/02/23 @ 16:45 by Karly Alford MD) Narrative: He works in [employer]. What is your current living situation?: I presently have a place to live Problems where you live: no known problems Problems where you live details: n/a In the past 12 months, utilities in danger of being shut off: no In past 12 months, lack of transportation kept you from medical appts, meetings, work, or getting things needed for daily living: no In the past 12 mos, have been you worried that your food would run out before you had money to buy more?: never true In the past 12 mos, the food you bought just didn't last and you didn't have money to buy more?: never true Highest level of school completed/degree received: high school graduate How often do you have a drink containing alcohol: 4 or more times a week Alcohol type: hard liquor Alcohol type details: Tequ[employer] Pt states he maybe drinks 14-15 Cocktails per week states he has a couple drinks per week How often do you have six or more drinks on one occasion: Weekly AUDIT-C Alcohol total score: 7 Non-prescribed substance use: denies use How often does anyone, including family, friends and others, physically hurt you : never How often does anyone, including family, friends and others, insult or talk down to you: never How often does anyone, including family, friends and others, threaten you with harm: never How often does anyone, including family, friends and others, scream or curse at you: never service: No Meds Home Medications and Allergies Home Medications Medication Instructions Recorded Confirmed Type amlodipine 10 mg tablet 10 mg PO DAILY 09/02/23 09/02/23 History carbidopa 25 mg-levodopa 100 mg 1 tab PO TID 09/02/23 09/02/23 History tablet glipizide 2.5 mg tablet, extended 5 mg PO DAILY 09/02/23 09/02/23 History release 24 hr lisinopril 40 mg tablet 40 mg PO DAILY 09/02/23 09/02/23 History metformin 500 mg tablet,extended 1,000 mg PO DAILY 09/02/23 09/02/23 History release 24 hr metoprolol tartrate 100 mg tablet 100 mg PO BID 09/02/23 09/02/23 History rosuvastatin 20 mg tablet 40 mg PO QPM 09/02/23 09/02/23 History tamsulosin 0.4 mg capsule 0.4 mg PO DAILY 09/02/23 09/02/23 History warfarin 5 mg tablet PO 09/02/23 History Allergies Allergy/AdvReac Type Severity Reaction Status Date / Time No Known Drug Allergies Allergy Verified 09/01/23 21:54 Exam Narrative: Exam Narrative: General: No acute distress Respiratory: Breathing is nonlabored on room air CV: Mildly tachycardic Abdomen: No obvious surgical scars. Very minimally tender in the epigastric region. Const: Vital Signs, click to edit/add: Vital Signs - 24 hr 09/01/23 21:51 09/01/23 22:24 09/01/23 22:41 Temperature 99.9 F H Pulse Rate 105 H 101 H Pulse Rate [Pulse Oximeter] Pulse Rate [Right Pulse Oximeter] 106 H Respiratory Rate 22 16 16 Blood Pressure 138/83 140/81 H Blood Pressure [Le ft Upper Arm] 161/95 H Blood Pressure [Ri ght Arm] Pulse Oximetry 95 95 95 Oxygen Delivery Me thod Room Air 09/01/23 23:01 09/01/23 23:22 09/01/23 23:42 Temperature Pulse Rate 97 100 104 H Pulse Rate [Pulse Oximeter] Pulse Rate [Right Pulse Oximeter] Respiratory Rate 16 18 16 Blood Pressure 161/101 H 162/99 H 145/87 H Blood Pressure [Le ft Upper Arm] Blood Pressure [Ri ght Arm] Pulse Oximetry 95 96 94 Oxygen Delivery Me thod 09/02/23 00:01 09/02/23 00:01 09/02/23 00:22 Temperature Pulse Rate 101 H 101 H 96 Pulse Rate [Pulse Oximeter] Pulse Rate [Right Pulse Oximeter] Respiratory Rate 16 16 16 Blood Pressure 144/114 H 144/114 H 146/92 H Blood Pressure [Le ft Upper Arm] Blood Pressure [Ri ght Arm] Pulse Oximetry 95 95 96 Oxygen Delivery Me thod 09/02/23 02:00 09/02/23 02:01 09/02/23 04:43 Temperature 97.7 F Pulse Rate 96 Pulse Rate [Pulse Oximeter] 90 Pulse Rate [Right Pulse Oximeter] Respiratory Rate 24 24 Blood Pressure Blood Pressure [Le ft Upper Arm] Blood Pressure [Ri ght Arm] 131/88 Pulse Oximetry 95 95 Oxygen Delivery Me thod Room Air Room Air 09/02/23 07:00 09/02/23 07:00 09/02/23 07:00 Temperature 98.5 F Pulse Rate 92 Pulse Rate [Pulse Oximeter] 98 98 Pulse Rate [Right Pulse Oximeter] Respiratory Rate 22 22 Blood Pressure Blood Pressure [Le ft Upper Arm] Blood Pressure [Ri ght Arm] 140/85 H Pulse Oximetry 95 Oxygen Delivery Me thod Room Air Results Labs Labs: Abnormal lab results 09/01/23 09/02/23 09/02/23 Range/Units 21:48 05:00 08:06 Plt Count 82 L 72 L (140-440) K/uL Neut % (Auto) 93.5 H 88.1 H (42.0-72.0) % Lymph % (Auto) 1.5 L 4.6 L (20-44) % Neut # (Auto) 9.00 H (1.7-7.0) K/uL Lymph # (Auto) 0.10 L 0.30 L (0.90-2.90) K/uL INR 1.21 H 1.20 H (0.91-1.10) Sodium 133 L (135-149) mmol/L Potassium 2.8 L* 3.3 L (3.6-5.1) mmol/L Glucose 231 H 127 H (60-115) mg/dL Total Bilirubin 4.8 H 4.1 H (0.1-1.5) mg/dL Direct Bilirubin 2.3 H (0.0-0.5) mg/dL Alkaline Phosphatase 162 H 151 H (40-150) U/L C-Reactive Protein 17.8 H (0.5-1.0) mg/dL Urine Protein 2+ A (Negative) Urine Blood 2+ A (Negative) Urine Bilirubin 1+ A (Negative) Diabetes panel 09/01/23 09/01/23 09/01/23 Range/Units 21:48 21:48 21:48 Sodium 133 L (135-149) mmol/L Potassium 2.8 L* (3.6-5.1) mmol/L Chloride 98 (96-114) mmol/L Carbon Dioxide 23 (20-32) mmol/L BUN 17 (7-30) mg/dL Creatinine 1.3 (0.5-1.5) mg/dL Glucose 231 H (60-115) mg/dL Calcium 8.5 (8.4-10.6) mg/dL AST 28 Cancelled (12-35) U/L ALT 24 Cancelled (4-50) U/L Alkaline Phosphatase 162 H (40-150) U/L Total Protein (6.0-8.3) g/dL Albumin (3.3-5.0) g/dL 09/01/23 09/01/23 09/01/23 Range/Units 21:48 21:48 21:48 Sodium (135-149) mmol/L Potassium (3.6-5.1) mmol/L Chloride (96-114) mmol/L Carbon Dioxide (20-32) mmol/L BUN (7-30) mg/dL Creatinine (0.5-1.5) mg/dL Glucose (60-115) mg/dL Calcium (8.4-10.6) mg/dL AST (12-35) U/L ALT (4-50) U/L Alkaline Phosphatase Cancelled (40-150) U/L Total Protein 6.9 Cancelled (6.0-8.3) g/dL Albumin 3.8 Cancelled (3.3-5.0) g/dL 09/02/23 Range/Units 08:06 Sodium 136 (135-149) mmol/L Potassium 3.3 L (3.6-5.1) mmol/L Chloride 100 (96-114) mmol/L Carbon Dioxide 27 (20-32) mmol/L BUN 17 (7-30) mg/dL Creatinine 1.4 (0.5-1.5) mg/dL Glucose 127 H (60-115) mg/dL Calcium 8.4 (8.4-10.6) mg/dL AST 23 (12-35) U/L ALT 17 (4-50) U/L Alkaline Phosphatase 151 H (40-150) U/L Total Protein 6.7 (6.0-8.3) g/dL Albumin 3.6 (3.3-5.0) g/dL Calcium panel 09/01/23 09/01/23 09/02/23 Range/Units 21:48 21:48 08:06 Calcium 8.5 8.4 (8.4-10.6) mg/dL Albumin 3.8 Cancelled 3.6 (3.3-5.0) g/dL Pituitary panel 09/01/23 09/02/23 Range/Units 21:48 08:06 Sodium 133 L 136 (135-149) mmol/L Potassium 2.8 L* 3.3 L (3.6-5.1) mmol/L Chloride 98 100 (96-114) mmol/L Carbon Dioxide 23 27 (20-32) mmol/L BUN 17 17 (7-30) mg/dL Creatinine 1.3 1.4 (0.5-1.5) mg/dL Glucose 231 H 127 H (60-115) mg/dL Calcium 8.5 8.4 (8.4-10.6) mg/dL Adrenal panel 09/01/23 09/01/23 09/01/23 Range/Units 21:48 21:48 21:48 Sodium 133 L (135-149) mmol/L Potassium 2.8 L* (3.6-5.1) mmol/L Chloride 98 (96-114) mmol/L Carbon Dioxide 23 (20-32) mmol/L BUN 17 (7-30) mg/dL Creatinine 1.3 (0.5-1.5) mg/dL Glucose 231 H (60-115) mg/dL Calcium 8.5 (8.4-10.6) mg/dL Total Bilirubin 4.8 H Cancelled (0.1-1.5) mg/dL AST 28 Cancelled (12-35) U/L ALT 24 (4-50) U/L Alkaline Phosphatase (40-150) U/L Total Protein (6.0-8.3) g/dL Albumin (3.3-5.0) g/dL 09/01/23 09/01/23 09/01/23 Range/Units 21:48 21:48 21:48 Sodium (135-149) mmol/L Potassium (3.6-5.1) mmol/L Chloride (96-114) mmol/L Carbon Dioxide (20-32) mmol/L BUN (7-30) mg/dL Creatinine (0.5-1.5) mg/dL Glucose (60-115) mg/dL Calcium (8.4-10.6) mg/dL Total Bilirubin (0.1-1.5) mg/dL AST (12-35) U/L ALT Cancelled (4-50) U/L Alkaline Phosphatase 162 H Cancelled (40-150) U/L Total Protein 6.9 Cancelled (6.0-8.3) g/dL Albumin 3.8 (3.3-5.0) g/dL 09/01/23 09/02/23 Range/Units 21:48 08:06 Sodium 136 (135-149) mmol/L Potassium 3.3 L (3.6-5.1) mmol/L Chloride 100 (96-114) mmol/L Carbon Dioxide 27 (20-32) mmol/L BUN 17 (7-30) mg/dL Creatinine 1.4 (0.5-1.5) mg/dL Glucose 127 H (60-115) mg/dL Calcium 8.4 (8.4-10.6) mg/dL Total Bilirubin 4.1 H (0.1-1.5) mg/dL AST 23 (12-35) U/L ALT 17 (4-50) U/L Alkaline Phosphatase 151 H (40-150) U/L Total Protein 6.7 (6.0-8.3) g/dL Albumin Cancelled 3.6 (3.3-5.0) g/dL All other labs normal. Imaging Abdominal ultrasound report/results: report reviewed and image reviewed Additional studies: 09/02/23 ultrasound of the abdomen 1. Mild gallbladder wall thickening is noted measuring 7 mm. This is nonspecific and can be seen with cholecystitis, hepatitis, cirrhosis, or congestive heart failure and clinical correlation is recommended. Assessment and Plan Assessment and plan (1) Elevated bilirubin: Status: Acute (2) Hypokalemia: Status: Acute (3) Parkinsons: Status: Acute (4) Diabetes: Status: Acute (5) Atrial fibrillation: Status: Acute (6) Chronic anticoagulation: Status: Acute (7) Thrombocytopenia: Status: Acute Plan The patient is a 68-year-old male with diabetes, Parkinson's, and now jaundice with nausea vomiting and concern for biliary pathology. Findings could represent rolled gallstone, acalculous cholecystitis, elevated LFTs secondary to viral or other infection. -recommend admission for IV antibiotics. -trend LFTs -obtain MRCP today. Will look for common bile duct stone. If he does have choledocholithiasis will need to transfer for ERCP. -if true acalculous cholecystitis, given his thrombocytopenia, I would not recommend cholecystectomy, rather consideration could be had for cholecystostomy tube if symptoms do not resolve on antibiotics. We will continue to follow along.
[2023-09-02 13:42] LABS: Albumin* 3.4 g/dL (3.3-5.0)
[2023-09-02 13:43] LABS: Chloride* 102 mmol/L (96-114); Potassium* 3.3 mmol/L (3.6-5.1); Sodium* 129 mmol/L (135-149)
[2023-09-02 13:45] LABS: Anion Gap 3 mEq/L (7-15); Aspartate Amino Transferase* 22 U/L (12-35); Bilirubin Total* 3.7 mg/dL (0.1-1.5); Blood Urea Nitrogen* 16 mg/dL (7-30); Carbon Dioxide* 24 mmol/L (20-32); Creatinine* 1.3 mg/dL (0.5-1.5); Est. Creatinine Clearance* 63.17; Estimated Glomerular Filt Rate 61 ml/min; Total Protein* 6.4 g/dL (6.0-8.3)
[2023-09-02 13:46] LABS: Alanine Aminotransferase* 12 U/L (4-50); Alkaline Phosphatase* 146 U/L (40-150); Calcium* 8.4 mg/dL (8.4-10.6); Glucose* 120 mg/dL (60-115)
[2023-09-02] MEDS: CARBIDOPA-LEVODOPA 25-100 TABLET 1 TAB PO ×2 (15:56→22:15)
[2023-09-02] MEDS: 5 % DEXTROSE/0.9% SOD CHLORIDE 1,000 ML 125 ML IV (18:35)
--- NOTE | 2023-09-02 19:54 | PC.NURSE ---
Patient alert and oriented x4. family at bedside. rates pain 10/27. IV in right FA intact and patent. fluids running. NA low and MD notified. BG 91, 5%dextrose in NS running @125. Patient ambulates to BR w/1 assist. uses urinal at bedside when able. Patient has been NPO. MRI completed and awaiting results.
--- NOTE | 2023-09-02 21:49 | PC.NURSE ---
called the list for transfers[facility] and no beds for medical ERCP
--- NOTE | 2023-09-02 21:57 | PM.EN ---
Chart Event Note Date Seen: 09/02/23 Chart Event Note: MRCP shows possible obstruction near the ampulla. Patient is currently feeling fine. Patient needs ERCP. Attempt to transfer tonight unsuccessful because no beds available at facilities that can perform ERCP. Check labs in the morning. Tomorrow consider attempts at outpatient ERCP in coordination with Gastroenterology. Alternatively transfer for ERCP and transfer back if needing postoperative hospitalization.
[2023-09-02] MEDS: METOPROLOL TARTRATE 100 MG TABLET PO (22:15)
[2023-09-03] MEDS: PIPERACILLIN/TAZOBACTAM 3.375 GM in 0.9 % SODIUM CHLORIDE Mini-bag 100 ML IVPB ×3 (00:32→12:21)
[2023-09-03 04:42] VITALS: BP 152/110; PULSE 96; RESP 18; TEMP 36.5; O2SAT 95
[2023-09-03] MEDS: 5 % DEXTROSE/0.9% SOD CHLORIDE 1,000 ML 125 ML IV (05:57)
--- NOTE | 2023-09-03 06:29 | PC.NURSE ---
Pt pleasant and cooperative. A&O x3 occasional forgetfulness. Up with assist of 1 and a walker. VSS BP elevated. Up with assist of one and walker. Is inc most of the time. BT+ no c/o pain. Has had a couple of soft stools.
[2023-09-03 07:00] VITALS: BP 146/93; PULSE 93; RESP 18; O2SAT 94
[2023-09-03 07:36] LABS: Albumin* 3.7 g/dL (3.3-5.0)
[2023-09-03 07:39] LABS: Aspartate Amino Transferase* 22 U/L (12-35); Bilirubin Direct* 1.7 mg/dL (0.0-0.5); Bilirubin Total* 3.3 mg/dL (0.1-1.5); Total Protein* 6.7 g/dL (6.0-8.3)
[2023-09-03 07:40] LABS: Alanine Aminotransferase* 19 U/L (4-50); Alkaline Phosphatase* 162 U/L (40-150); Lipase* 133 U/L (23-300)
[2023-09-03 09:23] LABS: Basophils Absolute Auto 0.02 K/uL (0.00-0.30); Basophils Percent Auto 0.3 % (0.0-3.0); Eosinophils Absolute Auto 0.02 K/uL (0.00-0.50); Eosinophils Percent Auto 0.3 % (0.0-7.0); Immature Granulocytes Abs Auto 0.02 K/uL (0.00-0.30); Immature Granulocytes Pct Auto 0.3 %; Lymphocytes Percent Auto 6.9 % (20-44); Mean Corpuscular HGB Conc 34 gm/dL (32-36); Mean Corpuscular Hemoglobin 29 pg (26-34); Mean Corpuscular Volume 86 fL (80-100); Monocytes Percent Auto 10.6 % (0.0-11.0); Neutrophils Percent Auto 81.6 % (42.0-72.0); Platelet Count* 88 K/uL (140-440); RDW Coefficient of Variation % 12.4 % (11.5-15.5); Red Blood Count 5.44 m/uL (4.30-5.90); White Blood Count* 6.05 K/uL (4.50-11.00)
[2023-09-03 09:26] LABS: Slide Review Reflex No
[2023-09-03] MEDS: CARBIDOPA-LEVODOPA 25-100 TABLET 1 TAB PO ×2 (09:59→13:51)
[2023-09-03] MEDS: AMLODIPINE 10 MG TABLET PO (09:59)
[2023-09-03] MEDS: METOPROLOL TARTRATE 100 MG TABLET PO (10:02)
[2023-09-03] MEDS: TAMSULOSIN HCL 0.4 MG CAPSULE PO (10:02)
--- NOTE | 2023-09-03 10:34 | PM.GSPN ---
Subjective Subjective Date Seen: 09/03/23 Interval history: Denies pain and nausea. No fevers. MRCP done yesterday showing no stones or cholelithiasis but CBD obstruction, possible stricture, mass or stone. Exam Narrative: Exam Narrative: General: NAD CV: mild tachycardia in 90s Abdomen: protuberant. non-tender. Const: Vital Signs, click to edit/add: Vital Signs - 24 hr 09/02/23 11:00 09/02/23 15:00 09/02/23 15:00 Temperature 98.5 F 98.1 F Pulse Rate Pulse Rate [Pulse Oximeter] 104 H 22 L 104 H Respiratory Rate 20 20 22 Blood Pressure [Ri ght Arm] 166/96 H 153/104 H Pulse Oximetry 96 96 Oxygen Delivery Me thod Room Air Room Air 09/02/23 23:00 09/03/23 04:42 Temperature 97.7 F Pulse Rate 104 H Pulse Rate [Pulse Oximeter] 96 Respiratory Rate 18 Blood Pressure [Ri ght Arm] 152/110 H Pulse Oximetry 95 Oxygen Delivery Me thod Room Air Labs/Imaging Labs Labs: Bilirubin is down slightly to 3.3 from 4.8 total, 1.7 from 2.3 direct Alk phos remains mildly elevated at 162. AST and ALT are normal. White blood cell count is normal. Platelets remain low at 88 Imaging Imaging: INDICATION: choledocholithasis TECHNIQUE: An MRCP, including 2D, 3D and maximum intensity projection imaging, was performed. COMPARISON: None. FINDINGS: The common bile duct is smoothly marginated and mildly dilated measuring up to 9 mm in diameter. No definite filling defect is identified, however there is abrupt narrowing at the ampulla with mild dilation upstream from this region. The intrahepatic ducts are normal in caliber, aside from possible mild dilation in the left hepatic lobe. They appear to branch and taper in a grossly normal fashion. The gallbladder is unremarkable without evidence of gallstones. No gallbladder wall thickening or pericholecystic fluid is identified.. The pancreatic duct is normal in caliber. The liver is normal in size, shape and signal. The spleen, pancreas, adrenal glands scratch are within normal limits. Multiple bilateral renal cysts are noted. No hydronephrosis or hydroureter identified. Small hiatal hernia. No bowel abnormality, lymphadenopathy or free fluid is demonstrated. IMPRESSION: Mildly dilated common bile duct measuring up to 9 millimeters. There is abrupt narrowing near the ampulla with mild dilation just upstream from this region suspicious for ampullary lesion such as stone or soft tissue lesion. Consider further evaluation with ERCP. No gallstones identified. No evidence for cholecystitis. Dictated by Carolyn Luna MD @ 09/02/2023 6:40:00 PM (Electronically Signed) Progress Note: A&P Assessment and plan (1) Thrombocytopenia: Status: Acute (2) Chronic anticoagulation: Status: Acute (3) Elevated bilirubin: Status: Acute Plan The patient is a 68 year old male with hyperbilirubinemia and likely common bile duct obstruction from a clear source. Most common would be gallstones, however he does not have any gallstones in his gallbladder. Because he has persistent hyperbilirubinemia, I recommend referral/transfer for ERCP. If the patient is found to have stricture or mass, this can be biopsied and the obstruction treated. If he does have choledocholithiasis, this can also be treated and I explained to the patient that he would undergo cholecystectomy at a later date as an outpatient. He is agreeable with this plan.
[2023-09-03 11:00] VITALS: BP 152/98; PULSE 84; RESP 18; TEMP 36.4; O2SAT 95
[2023-09-03 11:16] LABS: Chloride* 101 mmol/L (96-114)
[2023-09-03 11:19] LABS: Blood Urea Nitrogen* 15 mg/dL (7-30); Calcium* 8.6 mg/dL (8.4-10.6); Carbon Dioxide* 24 mmol/L (20-32); Creatinine* 1.3 mg/dL (0.5-1.5); Est. Creatinine Clearance* 63.17; Estimated Glomerular Filt Rate 61 ml/min; Glucose* 114 mg/dL (60-115)
[2023-09-03 11:58] LABS: Anion Gap 9 mEq/L (7-15); Sodium* 134 mmol/L (135-149)
[2023-09-03] MEDS: INSULIN ASPART 100 UNIT/ML SUBCUT (12:20)
[2023-09-03] MEDS: POTASSIUM CHLORIDE 10 MEQ/100 ML PIGGYBACK 100 MEQ IVPB (12:20)
[2023-09-03 15:00] VITALS: BP 157/102; PULSE 91; RESP 26; TEMP 36.6; O2SAT 96
[2023-09-03 15:37] LABS: Albumin* 3.6 g/dL (3.3-5.0); Chloride* 98 mmol/L (96-114)
[2023-09-03 15:38] LABS: Potassium* 3.2 mmol/L (3.6-5.1); Sodium* 135 mmol/L (135-149)
[2023-09-03 15:40] LABS: Anion Gap 9 mEq/L (7-15); Carbon Dioxide* 28 mmol/L (20-32); Creatinine* 1.5 mg/dL (0.5-1.5); Est. Creatinine Clearance* 54.75; Estimated Glomerular Filt Rate 51 ml/min; Total Protein* 6.4 g/dL (6.0-8.3)
[2023-09-03 15:41] LABS: Alanine Aminotransferase* 9 U/L (4-50); Alkaline Phosphatase* 141 U/L (40-150); Aspartate Amino Transferase* 19 U/L (12-35); Bilirubin Direct* 1.3 mg/dL (0.0-0.5); Bilirubin Total* 2.9 mg/dL (0.1-1.5); Blood Urea Nitrogen* 15 mg/dL (7-30); Calcium* 8.2 mg/dL (8.4-10.6); Glucose* 107 mg/dL (60-115)
--- NOTE | 2023-09-03 18:03 | PC.NURSE ---
Nursing Care Hours: [id number] Pt this shift calm and cooperative with cares, alert and oriented. Pt states he felt out of it NOC. Pt reported to family at bedside in morning that he slipped on urine last night when getting up to bathroom. [employer] found feces that pt attempted to clean up on bathroom floor and toilet. Denies hitting anything and was able to get up independently and get back into bed. Family reported to advertising copy writer and advertising copy writer reported to hospitalist. No new orders put in. Pt denies pain and is SB assist with steady gait. Using urinal at bedside. Walked ann x1. Insulin given per sliding scale. IV tender with potassium running, new order with lidocaine effective at pain relief. Report given over the phone to nurse at [facility]. EMS transfer. Pt stable condition. IV left in place running fluids.
--- NOTE | 2023-09-09 16:01 | P.DS_ITS ---
DS: Providers Provider Date Seen: 09/03/23 Date of admission: 09/02/23 05:59 Primary care physician: Joseph Sagastume MD Admitting Clinician: Kuldip Huffman MD Consults: 09/02/23 05:04 Consult to Occupational Therapy [CONS] Routine Comment: Reason(s) for OT Consult:: Difficulty Managing ADLs Any Restrictions?:: No Restrictions Consult to Physical Therapy [CONS] Routine Comment: Reason(s) for PT Consult:: Weakness Any Restrictions?:: No Restrictions Attending Physician on discharge: Kuldip Huffman MD Date of Discharge: 09/03/23 DS: Diagnosis Discharge Diagnosis (1) Common bile duct obstruction: Status: Acute (2) Elevated bilirubin: Status: Acute (3) Vomiting: Status: Acute (4) Dehydration: Status: Acute (5) Hypokalemia: Status: Acute (6) Chronic anticoagulation: Status: Acute (7) Thrombocytopenia: Status: Acute (8) Parkinsons: Status: Acute (9) Diabetes: Status: Acute (10) Atrial fibrillation: Status: Acute DS: Summary Hospital Course Hospital Course: 68-year-old man presented with biliary obstruction. MRCP demonstrated obstruction without obvious stones. Eventually we were able to make arrangements for patient to be transferred to another facility for ERCP and possible endoscopic ultrasound if warranted. Status at Discharge Functional status at discharge: independent ambulation Overall status at discharge: patient is progressing back to baseline Time Spent with Patient Time attestation: Total time spent providing and/or coordinating discharge services: Time spent: Greater than 30 minutes Exam Narrative: Exam Narrative: General: Resting in recliner, no distress HEENT: NCAT Resp: Breathing is comfortable and unlabored, CTAB CV: IRR, rate reasonably well controlled Neuro: Baseline tremor noted (patient has not had sinemet today, yet) Skin: Ongoing jaundice affecting limbs, trunk and face DS: Data Imaging MRCP: Radiologist's impression: IMPRESSION: Mildly dilated common bile duct measuring up to 9 millimeters. There is abrupt narrowing near the ampulla with mild dilation just upstream from this region suspicious for ampullary lesion such as stone or soft tissue lesion. Consider further evaluation with ERCP. No gallstones identified. No evidence for cholecystitis. US - abdomen: Radiologist's impression: IMPRESSION: 1. Mild gallbladder wall thickening is noted measuring 7 mm. This is nonspecific and can be seen with cholecystitis, hepatitis, cirrhosis, or congestive heart failure and clinical correlation is recommended. Discharge Plan Discharge Disposition: General Acute Hospital Discharge Location: [facility] Date of Admission: 09/02/23 05:59 Attending Provider on Discharge: Iker Mckeon Primary Care Provider: Jsoeph Sagastume Condition: Stable Discharge Orders: Transfer of Care to Other Hospital (ORDER); Ordered 09/09/23 Ordered By: Iker Mckeon Additional Instructions: You will require additional assessment from gastroenterology to further assess and consider additional intervention regarding common bile duct obstruction. Oxygen: No Urinary Catheter: No
== END 2023-09-03 17:44 | disposition short-term general hospital (02) | DRG 446 ==
LOC: ED 23:26 → MEDSURG 09-02 02:07
PROVIDERS: Family Medicine; Internal Medicine; Physician Assistant; Admitting Provider Family Medicine; Emergency Provider Family Medicine; PCP Family Medicine; Visit Provider Family Medicine
DX: K83.1 Obstruction of bile duct (principal); E87.6 Hypokalemia; E80.6 Other disorders of bilirubin metabolism; R10.11 Right upper quadrant pain; E86.0 Dehydration; I48.91 Unspecified atrial fibrillation; Z79.01 Long term (current) use of anticoagulants; I10 Essential (primary) hypertension; G20.A1 Parkinson's disease without dyskinesia, without mention of fluctuations; E11.9 Type 2 diabetes mellitus without complications; D69.6 Thrombocytopenia, unspecified; R11.2 Nausea with vomiting, unspecified
CPT/HCPCS: 36415; 74181; 76705; 80048; 80053; 80076; 81001; 82962; 83605; 83690; 83735; 85025; 85610; 86140; 93005; 97112; 97116; 97161; 97165; 99284; 99285; G0378; A9270; J2543; J2550; J3480; J7042; J7120

== ENCOUNTER 2023-09-03 17:27 | Outpatient (CLI) | payer MEDICARE, BC, SELFPAY | END 2023-09-03 17:28 | disposition home or self-care (01) | LOC: AMB 09-07 02:24 | PROVIDERS: PCP Family Medicine; Visit Provider Emergency Medicine Emergency Medical Services | DX: K83.1 Obstruction of bile duct (principal) | CPT/HCPCS: A0425; A0427 ==